=== PATIENT | female | born 1960 | race Caucasian/White ===

== ENCOUNTER 2018-12-12 17:25 | Emergency (ER) | payer OTHER ==
[2018-12-12] MEDS ORDERED: HYDROmorphONE/DILAUDID 2 MG/ML INJ IVP ONE (18:13)
[2018-12-12] MEDS ORDERED: ONDANSETRON 4 MG/2 ML VIAL IVP ONE ×2 (18:13→19:30)
--- NOTE | 2018-12-12 18:44 | EDPHY ---
H & P Stated Complaint: Rollerblade accident, no LOC/head inj, R wrist deform Time Seen by Provider: 12/12/18 17:37 HPI/ROS: CHIEF COMPLAINT: Right arm injury HISTORY OF PRESENT ILLNESS: 58-year-old female presents after a fall with a right arm injury and deformity. She was rollerblading this afternoon, fell directly onto her right arm. Immediate onset of severe right forearm pain and deformity. The pain increases with any movement. No numbness or weakness. Denies head injury; no YA or neck pain. No other injuries. Drank water on way to ED, last food intake 1600. REVIEW OF SYSTEMS: complete 10 point ROS reviewed and is negative except for the noted elements in the HPI - Personal History Current Tetanus/Diphtheria Vaccine: Yes - Medical/Surgical History Hx Asthma: No Hx Chronic Respiratory Disease: No Hx Diabetes: No Hx Cardiac Disease: No Hx Renal Disease: No Hx Cirrhosis: No Hx Alcoholism: No Hx HIV/AIDS: No Hx Splenectomy or Spleen Trauma: No Other PMH: none - Family History Significant Family History: No pertinent family hx - Social History Smoking Status: Never smoked Alcohol Use: Sober Drug Use: None - Physical Exam Exam: Alert and oriented, pleasant HEENT: normal inspection, REZA, EOMI, no yashira tenderness Neck: NT, ROM without pain Chest: CTA CV: RRR Abd: soft, NT Extremities: Right upper extremity-deformity, tenderness and swelling of the distal forearm Skin: multiple superficial abrasions on the forearm and over the knuckles of the right hand, no lacerations Neuro: Motor and sensory intact Vascular: Capillary refill brisk distally, radial pulse 2 + Psych: normal mood/affect Constitutional: Initial Vital Signs Temperature (C) 36.6 C 12/12/18 17:27 Heart Rate 92 12/12/18 17:27 Respiratory Rate 18 12/12/18 17:27 Blood Pressure 136/91 H 12/12/18 17:27 O2 Sat (%) 94 12/12/18 17:27 O2 Delivery Mode Room Air O2 (L/minute) 2 Allergies/Adverse Reactions: No Known Allergies Allergy (Unverified 12/12/18 17:26) Home Medications: Medication Instructions Recorded Hydrocodone/APAP 5/325 [[place] 1 - 2 tab PO Q4H PRN #15 tab 12/12/18 5/325] Ondansetron Odt [Zofran Odt 4 mg 4 mg PO Q4 PRN #6 tab 12/12/18 (*)] Medical Decision Making - Diagnostics Imaging Results: Xray: comminuted distal radius fracture with palmar angulation, distal ulna dislocation Repeat Xray: improved positioning of distal radius fracture, persistent medardo dislocation Imaging: Discussed imaging studies w/ call out operator Radiologist, I viewed and interpreted images myself Procedures: Hematoma block with 1% lidocaine performed by me. Forearm reduction using finger traps and traction/counter traction, then direct pressure over the fracture site applied. Attempt to reduce ulna, unstable and unable to maintain positioning. Portable x-ray reveals fracture reduced, persistent ulna dislocation. ED Course/Re-evaluation: Fracture dislocation reduction attempted by me using hematoma block and IV Dilaudid. Adequate pain control achieved. Able to reduce fracture, but not ulna dislocation. Consulted Dr. Canas, will plan for operative repair. Pt last ate at 1600 today, so will f/u in office in am and plan for repair in 1-2 days. Orthoglass sugartong splint placed by mechanical engineering technician, neurovasc intact after application. Differential Diagnosis: includes though not limited to open fracture, neurovascular compromise, other fracture - Data Points Medications Given: Discontinued Medications Hydrocodone Bitart/Acetaminophen ([place] 5/325mg Prepack#6) 1 btl TAKEHOME EDNOW ONE Stop: 12/12/18 19:17 Last Admin: 12/12/18 19:34 Dose: 1 btl Hydromorphone HCl (Dilaudid) 0.5 mg IVP EDNOW ONE Stop: 12/12/18 18:14 Last Admin: 12/12/18 18:23 Dose: 0.5 mg Ondansetron HCl (Zofran) 4 mg IVP EDNOW ONE Stop: 12/12/18 18:14 Last Admin: 12/12/18 18:23 Dose: 4 mg Ondansetron HCl (Zofran Odt 4 Mg Prepack#2) 1 btl TAKEHOME EDNOW ONE Stop: 12/12/18 19:17 Last Admin: 12/12/18 19:35 Dose: 1 btl Ondansetron HCl (Zofran) 4 mg IVP EDNOW ONE Stop: 12/12/18 19:31 Last Admin: 12/12/18 19:34 Dose: 4 mg Departure - Departure Disposition: Home, Routine, Self-Care Clinical Impression: Distal radius fracture, right Qualifiers: Encounter type: initial encounter Fracture type: closed Fracture morphology: other fracture Qualified Code(s): S52.591A - Other fractures of lower end of right radius, initial encounter for closed fracture Dislocation of distal end of ulna Qualifiers: Encounter type: initial encounter Laterality: right Qualified Code(s): S63.074A - Dislocation of distal end of right ulna, initial encounter Condition: Good Instructions: Hydrocodone/Acetaminophen (By mouth), Ondansetron (By mouth), Arm Fracture in Adults (ED) Additional Instructions: You have a fracture of the radius and a dislocation of the distal ulna. You will need surgery for this fracture dislocation. Dr. Canas will see you in the office tomorrow morning. Referrals: Dawson Canas MD [Medical Doctor] - As per Instructions (Call in the morning to make an appointment with Dr. Canas. ) Prescriptions: Hydrocodone/APAP 5/325 [[place] 5/325] 1 - 2 tab PO Q4H PRN #15 tab PRN Reason: Pain, Moderate Ondansetron Odt [Zofran Odt 4 mg (*)] 4 mg PO Q4 PRN #6 tab PRN Reason: Nausea
[2018-12-12] MEDS ORDERED: HYDROCOD/APAP 5/325 PREPACK#6 BTL TAKEHOME ONE (19:16)
[2018-12-12] MEDS ORDERED: ONDANSETRON 4MG PREPACK#2 BTL TAKEHOME ONE (19:16)
[2018-12-12] MEDS ORDERED: ONDANSETRON 4 MG/2 ML VIAL ONE (19:29)
[2018-12-12 19:57] VITALS: BP 115/73
== END 2018-12-12 19:57 | disposition home or self-care (01) ==
DX: S52.591A Other fractures of lower end of right radius, initial encounter for closed fracture (principal); S63.074A Dislocation of distal end of right ulna, initial encounter; V00.121A Fall from non-in-line roller-skates, initial encounter; Y93.51 Activity, roller skating (inline) and skateboarding
CPT/HCPCS: 96374; A4565; J1170; J2405